=== PATIENT | male | born 1990 | race Asian ===

== ENCOUNTER 2018-10-20 00:43 | Emergency (ER) | payer SELFPAY ==
[2018-10-20 00:50] VITALS: BP 131/81; PULSE 84; TEMP 99.6; BMI 24.1
[2018-10-20] MEDS ORDERED: IBUPROFEN 600 MG TABLET (FP) PO ONE ×2 (01:06→01:07)
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
[2018-10-20] MEDS ORDERED: DIPHTH,PERTUSS(ACELL),TET 0.5 ML DISP.SYRIN IM ONE ×2 (01:13→01:14)
== END 2018-10-20 01:20 | disposition home or self-care (01) ==
LOC: FER 00:43
PROC: 3E0234Z Introduction of Serum, Toxoid and Vaccine into Muscle, Percutaneous Approach (ICD-10-PCS; principal; 2018-10-20)
DX: S40.022A Contusion of left upper arm, initial encounter (principal); S20.212A Contusion of left front wall of thorax, initial encounter; V43.52XA Car driver injured in collision with other type car in traffic accident, initial encounter; Y93.89 Activity, other specified; Y92.410 Unspecified street and highway as the place of occurrence of the external cause
CPT/HCPCS: 90715; 99281-25